=== PATIENT | male | born 1965 | race Caucasian/White ===

== ENCOUNTER 2018-03-19 08:45 | Day surgery (SDC) | payer OTHER ==
[2018-03-19] MEDS ORDERED: LACTATED RINGERS 1,000 ML IV ONE (09:15)
[2018-03-19] MEDS ORDERED: MIDAZOLAM 2 MG/2 ML VIAL IVP ONE (09:38)
[2018-03-19] MEDS ORDERED: fentaNYL 250 MCG/5 ML VIAL IVP ONE (09:38)
[2018-03-19 10:44] VITALS: BP 117/86
== END 2018-03-19 08:46 | disposition home or self-care (01) ==
LOC: SDS 08:45
PROVIDERS: ATTEND Internal Medicine Gastroenterology
PROC: 0DBM8ZZ Excision of Descending Colon, Via Natural or Artificial Opening Endoscopic (ICD-10-PCS; 2018-03-19)
PROC: 0DBH8ZZ Excision of Cecum, Via Natural or Artificial Opening Endoscopic (ICD-10-PCS; principal; 2018-03-19 09:45)
DX: Z12.11 Encounter for screening for malignant neoplasm of colon (principal); D12.0 Benign neoplasm of cecum; D12.4 Benign neoplasm of descending colon; Z80.0 Family history of malignant neoplasm of digestive organs; K21.9 Gastro-esophageal reflux disease without esophagitis; Z87.891 Personal history of nicotine dependence
CPT/HCPCS: 45380; J3010; J7120

== ENCOUNTER 2022-02-08 13:11 | Outpatient (CLI) | payer OTHER ==
[2022-02-08 19:55] LABS: BASOPHILS % (AUTO) 0.9 %; EOSINOPHILS # (AUTO) 0.2 10^3/uL (0.0-0.7); EOSINOPHILS % (AUTO) 4.8 %; HCT - HEMATOCRIT 41.6 % (42.0-52.0); HGB - HEMOGLOBIN 13.3 g/dL (14.0-18.0); LYMPHOCYTES # (AUTO) 0.9 10^3/uL (1.5-3.5); LYMPHOCYTES % (AUTO) 18.5 %; MEAN CORPUSCULAR HEMOGLOBIN 28.7 pg (27.0-31.0); MEAN CORPUSCULAR VOLUME 89.8 fL (80.0-94.0); MEAN PLATELET VOLUME 10.8 fL (7.4-11.4); MONOCYTES # (AUTO) 0.4 10^3/uL (0.0-1.0); MONOCYTES % (AUTO) 7.8 %; NEUTROPHILS # (AUTO) 3.1 10^3/uL (1.5-6.6); NEUTROPHILS % (AUTO) 67.8 %; PLT - PLATELET COUNT 205 10^3/uL (130-450); RED BLOOD COUNT 4.63 10^6/uL (4.70-6.10); RED CELL DISTRIBUTION WIDTH 13.5 % (12.0-15.0); WHITE BLOOD COUNT 4.6 x10^3/uL (4.8-10.8)
[2022-02-08 20:31] LABS: T4 (THYROXINE) 9.9 ug/dL (6.09-12.23)
[2022-02-08 20:33] LABS: THYROID STIMULATING HORMONE 2.08 uIU/mL (0.34-5.60)
[2022-02-08 20:36] LABS: FREE T3 3.23 pg/mL (2.5-3.9)
[2022-02-08 20:50] LABS: ALBUMIN 4.4 g/dL (3.2-5.5); ALBUMIN/GLOBULIN RATIO 1.4 (1.0-2.2); BILIRUBIN,TOTAL 0.8 mg/dL (0.2-1.0); CALCIUM 9.2 mg/dL (8.5-10.3); POTASSIUM 3.6 mmol/L (3.5-5.0); TOTAL PROTEIN 7.5 g/dL (6.7-8.2)
[2022-02-10 07:07] LABS: ESTRADIOL 19.5 pg/mL (7.6-42.6)
[2022-02-12 17:08] LABS: FREE TESTOSTERONE(DIRECT) 5.9 pg/mL (7.2-24.0)
== END 2022-02-08 13:12 | disposition home or self-care (01) ==
LOC: LAB.S 13:11
PROVIDERS: ATTEND Nurse Practitioner Adult Health
DX: R68.82 Decreased libido (principal); Z73.0 Burn-out; Z72.820 Sleep deprivation
CPT/HCPCS: 36415; 80053; 82607; 82652; 82670; 84153; 84402; 84403; 84436; 84443; 84481; 85025; 86376

== ENCOUNTER 2022-04-11 13:41 | Outpatient (CLI) | payer OTHER ==
[2022-04-11 20:14] LABS: ALBUMIN 4.5 g/dL (3.2-5.5); ALBUMIN/GLOBULIN RATIO 1.6 (1.0-2.2); BILIRUBIN,TOTAL 0.7 mg/dL (0.2-1.0); CALCIUM 9.1 mg/dL (8.5-10.3); POTASSIUM 3.8 mmol/L (3.5-5.0); TOTAL PROTEIN 7.3 g/dL (6.7-8.2)
[2022-04-11 20:30] LABS: THYROID STIMULATING HORMONE 3.03 uIU/mL (0.34-5.60)
[2022-04-11 20:32] LABS: FREE T4 (FREE THYROXINE) 0.77 ng/dL (0.58-1.64)
[2022-04-11 20:33] LABS: FREE T3 2.95 pg/mL (2.5-3.9)
[2022-04-13 08:10] LABS: ESTRADIOL 40.8 pg/mL (7.6-42.6)
[2022-04-13 19:07] LABS: FREE TESTOSTERONE(DIRECT) 23.5 pg/mL (7.2-24.0)
== END 2022-04-11 13:42 | disposition home or self-care (01) ==
LOC: LAB.S 13:41
PROVIDERS: ATTEND Nurse Practitioner Adult Health
DX: E29.1 Testicular hypofunction (principal); M25.50 Pain in unspecified joint; R53.83 Other fatigue; R68.82 Decreased libido; Z73.0 Burn-out; Z72.820 Sleep deprivation
CPT/HCPCS: 36415; 80053; 82607; 82652; 82670; 84153; 84402; 84403; 84439; 84443; 84481; 86376

== ENCOUNTER 2022-08-20 10:57 | Outpatient (CLI) | payer OTHER ==
[2022-08-20 15:10] LABS: CHOL/HDL RATIO 4.7 (<5.0); CHOLESTEROL 183 mg/dL; HDL CHOLESTEROL 39 mg/dL; LDL CHOLESTEROL,CALCULATED 122 mg/dL; LDL/HDL RATIO 3.1 (<3.6); TRIGLYCERIDES 110 mg/dL; VLDL CHOLESTEROL 22 mg/dL
[2022-08-21 06:11] LABS: HCV AB Non Reactive (Non Reactive); HIV SCREEN 4TH GENERATION Non Reactive (Non Reactive)
[2022-08-21 15:58] LABS: ESTIMATED AVERAGE GLUCOSE 105 mg/dL (70-100); HEMOGLOBIN A1c% 5.3 % (4.27-6.07)
== END 2022-08-20 10:58 | disposition home or self-care (01) ==
LOC: LAB.S 10:57
PROVIDERS: ATTEND Family Medicine
DX: Z11.4 Encounter for screening for human immunodeficiency virus [HIV] (principal); Z13.220 Encounter for screening for lipoid disorders; Z11.59 Encounter for screening for other viral diseases; Z13.1 Encounter for screening for diabetes mellitus
CPT/HCPCS: 36415; 80061; 83036; 83721; 86803; 87389

== ENCOUNTER 2022-09-19 13:04 | Outpatient (CLI) | payer OTHER | END 2022-09-19 13:05 | disposition home or self-care (01) | LOC: LAB.S 13:04 | PROVIDERS: ATTEND Nurse Practitioner Adult Health | DX: E29.1 Testicular hypofunction (principal); E55.9 Vitamin D deficiency, unspecified; R53.83 Other fatigue; M25.50 Pain in unspecified joint | CPT/HCPCS: 36415; 81599; 82670; 84153; 84402; 84403; 85025 ==

== ENCOUNTER 2023-11-07 07:11 | Outpatient (CLI) | payer OTHER | END 2023-11-07 07:12 | disposition home or self-care (01) | LOC: LAB.S 07:11 | PROVIDERS: ATTEND Anesthesiology | DX: E29.1 Testicular hypofunction (principal); R32 Unspecified urinary incontinence; M25.50 Pain in unspecified joint; R53.83 Other fatigue; Z73.0 Burn-out | CPT/HCPCS: 36415; 81599; 84153 ==

== ENCOUNTER 2023-11-18 08:40 | Outpatient (CLI) | payer OTHER | END 2023-11-18 08:41 | disposition home or self-care (01) | LOC: LAB 08:40 | PROVIDERS: ATTEND Anesthesiology | DX: E29.1 Testicular hypofunction (principal); R32 Unspecified urinary incontinence; M25.50 Pain in unspecified joint; Z73.0 Burn-out; R53.83 Other fatigue | CPT/HCPCS: 81599 ==